=== PATIENT | male | born 1970 | race Two or more races ===

== ENCOUNTER 2023-04-25 07:52 | Inpatient (IN) | payer BC ==
[~2023-04-25] VITALS: Ht 152.4 cm; Wt 90.7 kg
--- NOTE | 2023-04-25 08:27 | NUR ---
PTE ALERTA Y ORIENTADO X3 EN COMPANIA DE [place]. PTE REFIERE TENER DOLOR DE PECHO Y ADORMECIMIENTO EN EXTREMIDADES SUPERIORES. SE REALIZA V/S, EKG Y SE PRESENTA A DR. FARFAN.
--- NOTE | 2023-04-25 09:40 | NUR ---
SE RECINBE PTE MASCULINO DE 52 YRS ALERTA CONCIENTE Y TRANQUILP ES EVALUADO POR EL DR MORALES QUIE ORDENA TRATMAIETNO LA CUAL SE EJECUTA .SE MANTIENE BAJO OBSERVACION POR CAMBIOS . SE LE ADMINISTRA MEDICAMENTOI POR IV.
--- NOTE | 2023-04-25 12:09 | NUR ---
PACIENTE REEVALUADO POR DR. MORALES QUIEN ORDENA ADMITIR PACIENTE A LA UNIDAD DE CHEST PAIN. SE CANALIZA PACIENTE BAJO MEDIDAS ASEPTICAS CON ANGIO #18 EN [place]RA[place], AL MOMENTO AREA [place] DE ENROJECIMIENTO Y EDEMA. SE ADMINISTRAN MEDICAMENTOS GER ORDEN MEDICA. SE CONECTA PACIENTE A MONITOR CARDIACO. SE AMAIRANI MUESTRAS DE CARLITOS BAJO MEDIDAS ASEPTICAS. SE MANTIENE PACIENTE EN LAVERNE BAJA, BARNDAS ELEVADAS POR PRECAUCION.
== END 2023-04-27 10:40 | disposition home or self-care (01) | DRG 311 ==
LOC: ER 07:52 → MEDI 18:06 → SEC-K 18:06 → MEDI 21:11
PROVIDERS: ADMIT Internal Medicine; ATTEND Internal Medicine
PROC: 4A12X4Z Monitoring of Cardiac Electrical Activity, External Approach (ICD-10-PCS; principal; 2023-04-25)
PROC: B24BZZZ Ultrasonography of Heart with Aorta (ICD-10-PCS; 2023-04-25)
DX: I24.9 Acute ischemic heart disease, unspecified (principal); K21.00 Gastro-esophageal reflux disease with esophagitis, without bleeding